=== PATIENT | female | born 1960 | race Caucasian/White ===

== ENCOUNTER 2019-05-29 09:30 | Outpatient (CLI) | payer OTHER | END 2019-05-29 23:59 | disposition home or self-care (01) | LOC: CVU 09:30 → CFH 23:59 | PROVIDERS: ATTEND Internal Medicine Cardiovascular Disease | DX: I65.22 Occlusion and stenosis of left carotid artery (principal); I10 Essential (primary) hypertension; E78.5 Hyperlipidemia, unspecified; R94.31 Abnormal electrocardiogram [ECG] [EKG] | CPT/HCPCS: 78452; 93017; 93306; 93880; A9502 ==

== ENCOUNTER 2021-03-25 05:32 | Day surgery (SDC) | payer OTHER ==
[~2021-03-25] VITALS: Ht 162.6 cm; Wt 83.7 kg
[2021-03-25 06:29] VITALS: BP 140/89
== END 2021-03-25 14:00 | disposition home or self-care (01) ==
LOC: OUT 05:32
PROVIDERS: ATTEND Orthopaedic Surgery
DX: M16.12 Unilateral primary osteoarthritis, left hip (principal); I10 Essential (primary) hypertension; Z20.822 Contact with and (suspected) exposure to COVID-19; Z79.899 Other long term (current) drug therapy; Z88.2 Allergy status to sulfonamides
CPT/HCPCS: 27130; 36415; 73502; 80053; 85025; 87081; 93005; 97161; C1713; C1776; J1885; J2175; J2250; J2274; J2370; J2765; J2795; J3010; J3370; J7050; J7120; U0003; U0005